=== PATIENT | male | born 1960 | race Caucasian/White ===

== ENCOUNTER 2021-12-21 10:04 | Emergency (ER) | payer OTHER, SELFPAY ==
[2021-12-21 10:20] VITALS: BP 145/86; PULSE 79; RESP 16; TEMP 36.3; O2SAT 97
--- NOTE | 2021-12-21 10:21 | ED.URI ---
HPI - URI/Sore Throat General Chief Complaint: Upper Respiratory Infection Stated Complaint: Sinus Infection Time Seen by Provider: 12/21/21 10:22 Source: patient, family, RN notes reviewed and old records reviewed Mode of arrival: ambulatory Limitations: no limitations History of Present Illness HPI Narrative: 61-year-old male presents to the [facility] with complaint of sinus pain, pressure and nasal drainage for 10 days. Denies fevers. No cough. No chest pain or abdominal pain. Related Data Home Medications Medication Instructions Recorded Confirmed lisinopril 12/21/21 Allergies Allergy/AdvReac Type Severity Reaction Status Date / Time ferrous sulfate Allergy Unknown Unknown Verified 12/21/21 10:31 tetracycline Allergy Unknown Unknown Verified 12/21/21 10:31 hydrochlorothiazide Allergy Unknown Verified 12/21/21 10:31 TETRAMYCIN Allergy Mild Unknown Uncoded 12/21/21 10:31 Review of Systems Review of Systems: All systems reviewed & are unremarkable except as noted in HPI and below Constitutional: Constitutional: Reports no additional constitutional complaints, Denies chills, Denies fever(s) and Denies headache(s) Eyes: Eyes: Reports no additional eye complaints ENT: Reports as per HPI, Denies vertigo, Denies dizziness, Denies headache(s), Reports nasal congestion and Denies sore throat Cardiovascular: Cardiovascular: Reports no additional cardiovascular complaints, Denies chest pain, Denies syncope, Denies rapid heart rate and Denies dyspnea Respiratory: Respiratory: Reports no additional respiratory complaints, Denies cough, Denies dyspnea and Denies wheezing Gastrointestinal: Gastrointestinal: Reports no additional gastrointestinal complaints, Denies abdominal pain, Denies diarrhea, Denies nausea and Denies vomiting Musculoskeletal: Musculoskeletal: Reports no additional musculoskeletal complaints and Denies numbness Integumentary/Breasts: Skin/Breast: Reports system reviewed and no additional complaints, except as docu Neurologic: Reports system reviewed and no additional complaints, except as documented, Denies vertigo, Denies dizziness, Denies syncope, Denies headache(s), Denies focal weakness and Denies numbness Psychiatric: Psychiatric: Reports no additional psychiatric complaints Allergic/Immunologic: Allergic/Immunologic: Reports no additional allergic/immunologic complaints and Denies wheezing PMFSH Past Medical History Medical History (Updated 12/21/21 @ 18:42 by Nargis Chatman) Hypertension Comments At the time of my signature, I reviewed and agree with the nursing past medical, surgical, social, and family history. There is no relevant family history pertinent to the patient complaint. Exam Const: General: cooperative, no acute distress, well developed, alert and ill appearing chronically; not acutely Nutritional Appearance: well nourished Orientation/consciousness: patient oriented x3 Limitations: no limitations HENMT: Head: normal to inspection Ears: external ears normal, TM's normal bilaterally and EAC's normal General nose exam: No nasal discharge present and Abnormal mucous membranes and turbinates present boggy; not erythematous Face and sinus: normal facial exam, no ecchymosis, no erythema and sinus tenderness frontal and maxillary Mouth: Yes Normal oral and palatal mucosa present Throat: posterior oropharynx normal, uvula midline, postnasal drainage and no uvular edema Eyes: Conjunctivae: conjunctivae normal Pupils: Equal, round and reactive pupils present Neck: Neck: normal visual inspection, no lymphadenopathy and no meningeal signs Chest: Chest palpation & inspection: normal inspection of the chest Resp: Effort & Inspection: normal respiratory effort and no use of accessory muscles Auscultation: clear to auscultation bilaterally, no crackles, no rales, no rhonchi and no wheezes Cardio: Rate: regular rate Rhythm: regular rhythm : General: Yes no CVA tenderness Back/
== END 2021-12-21 10:36 | disposition home or self-care (01) ==
PROVIDERS: Emergency Provider Nurse Practitioner
DX: J32.9 Chronic sinusitis, unspecified (principal); I10 Essential (primary) hypertension
CPT/HCPCS: 99213; G0463

== ENCOUNTER 2022-07-26 00:10 | Day surgery (SDC) | payer OTHER, SELFPAY ==
[2022-07-09 14:32] VITALS: BMI 39.6
--- NOTE | 2022-07-23 17:34 | P.HP_ITS ---
History of Present Illness History of Present Illness Consent: Risks, benefits, and alternatives have been discussed and questions answered. Patient agrees to proceed with procedure. Chief complaint: hx of colon ca Narrative: Satya Ashley is a 61 year old male Referred for colon cancer screening. He was found have colon cancer 8 years ago. Review of Systems Review of Systems: All systems reviewed & are unremarkable except as noted in HPI and below PMFSH Past Medical History Medical History Colon cancer Depression Hx of fracture of ankle Hypertension NSTEMI (non-ST elevated myocardial infarction) Family History Family History Father Alcohol abuse Hypertension Arrhythmia Mother Cerebrovascular accident Diabetes mellitus Hypertension Hyperlipidemia Grandparent Diabetes mellitus Cerebrovascular accident Sibling Parkinson's disease Asthma Social History Social History Smoking status: Never smoker Second hand tobacco smoke exposure: Yes Alcohol intake: current Alcohol use details: one beer per month Substance use: never Substance use type: does not use Living arrangements: with family 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 Gender identity (if verbalized by the patient): Male Spiritual care concerns: No Meds Home Medications and Allergies Home Medications Medication Instructions Recorded Confirmed Type amlodipine 10 mg tablet (Norvasc) 10 mg PO DAILY #90 tabs 03/15/22 07/26/22 Rx lisinopril 20 mg tablet 20 mg PO DAILY #90 tabs 03/15/22 07/26/22 Rx naproxen sodium 220 mg capsule 220 mg PO BID PRN Pain 03/15/22 07/26/22 History omeprazole 20 mg capsule,delayed 20 mg PO DAILY PRN (Drug) Ingestion 03/15/22 07/26/22 History release rosuvastatin 20 mg tablet (Crestor) 20 mg PO DAILY #90 tabs 03/29/22 07/26/22 Rx Allergies Allergy/AdvReac Type Severity Reaction Status Date / Time ferrous sulfate Allergy Unknown Unknown Verified 07/26/22 09:05 tetracycline Allergy Unknown Unknown Verified 07/26/22 09:05 hydrochlorothiazide Allergy Unknown Verified 07/26/22 09:05 TETRAMYCIN Allergy Mild Unknown Uncoded 07/26/22 09:05 Exam Resp: Auscultation: clear to auscultation bilaterally Cardio: Rate: regular rate Rhythm: regular rhythm GI: GI Palp: Yes Soft to palpation and No Tenderness to palpation present (GI) Assessment and Plan Assessment and plan (1) Colon cancer screening: Code(s): Z12.11 - Encounter for screening for malignant neoplasm of colon Status: Acute Assessment and Plan: Colonoscopy with possible biopsy or polypectomy or cautery or injection of substances.
[2022-07-26 09:07] VITALS: BP 143/85; PULSE 53; RESP 20; TEMP 36.3; O2SAT 99
--- NOTE | 2022-07-26 09:09 | WPDANESEPPF ---
Anes - Initial Pre Proc Eval Procedure: Operation Date: 07/26/22 10:00 Proposed Procedures p Screening Colonoscopy - Huey Piedra MD Date/Time: 07/26/22 09:09 Surgeon: Huey Piedra MD Pre Op Diagnosis: hx of colon ca Patient Data Age: 61 Gender: M Height: 1.8 m Weight: 129 kg Allergies Allergy/AdvReac Type Severity Reaction Status Date / Time ferrous sulfate Allergy Unknown Unknown Verified 07/26/22 09:05 tetracycline Allergy Unknown Unknown Verified 07/26/22 09:05 hydrochlorothiazide Allergy Unknown Verified 07/26/22 09:05 TETRAMYCIN Allergy Mild Unknown Uncoded 07/26/22 09:05 Home Medications Medication Instructions Recorded Confirmed Type amlodipine 10 mg tablet (Norvasc) 10 mg PO DAILY #90 tabs 03/15/22 07/09/22 Rx lisinopril 20 mg tablet 20 mg PO DAILY #90 tabs 03/15/22 07/09/22 Rx naproxen sodium 220 mg capsule 220 mg PO BID PRN Pain 03/15/22 07/09/22 History omeprazole 20 mg capsule,delayed 20 mg PO DAILY PRN (Drug) Ingestion 03/15/22 07/09/22 History release rosuvastatin 20 mg tablet (Crestor) 20 mg PO DAILY #90 tabs 03/29/22 07/09/22 Rx Patient hx anesthesia problems: none Family hx anesthesia problems: none Results Review: All pre-operative results and documents have been reviewed as part of the pre-operative evaluation. [facility] Past Medical History Medical History Colon cancer Depression Hx of fracture of ankle Hypertension NSTEMI (non-ST elevated myocardial infarction) Family History Family History Father Alcohol abuse Hypertension Arrhythmia Mother Cerebrovascular accident Diabetes mellitus Hypertension Hyperlipidemia Grandparent Diabetes mellitus Cerebrovascular accident Sibling Parkinson's disease Asthma Social History Social History Smoking status: Never smoker Second hand tobacco smoke exposure: Yes Alcohol intake: current Alcohol use details: one beer per month Substance use: never Substance use type: does not use Living arrangements: with family 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 Informed Consent: The patient's anesthetic plan and its attendant risks and benefits were discussed with the patient/family/POA. Questions were solicited and answers provided to the satisfaction of the patient/family/POA.
[2022-07-26] MEDS: LACTATED RINGERS 1,000 ML 150 ML IV CONT (09:20)
[2022-07-26 09:59] VITALS: BP 89/60; PULSE 55; RESP 18; O2SAT 96
[2022-07-26 10:09] VITALS: BP 130/83; PULSE 55; RESP 21; O2SAT 94
[2022-07-26 10:19] VITALS: BP 133/85; PULSE 50; RESP 22; O2SAT 96
--- NOTE | 2022-07-26 11:57 | SUR.PHASEII ---
Pt discharge delayed pt waiting daughter to arrive after her Dr. Patel
== END 2022-07-26 11:50 | disposition home or self-care (01) ==
PROVIDERS: PCP Family Medicine; Visit Provider Internal Medicine Gastroenterology
PROC: 0DJD8ZZ Inspection of Lower Intestinal Tract, Via Natural or Artificial Opening Endoscopic (ICD-10-PCS; CPT 45378; principal; 2022-07-26 10:00)
DX: Z12.11 Encounter for screening for malignant neoplasm of colon (principal); D12.5 Benign neoplasm of sigmoid colon; Z98.0 Intestinal bypass and anastomosis status; K57.30 Diverticulosis of large intestine without perforation or abscess without bleeding; I10 Essential (primary) hypertension; I25.2 Old myocardial infarction; F32.A Depression, unspecified; E66.01 Morbid (severe) obesity due to excess calories; Z68.41 Body mass index [BMI] 40.0-44.9, adult
CPT/HCPCS: 45385; 88305; J2704; J7120

== ENCOUNTER 2022-10-22 10:01 | Outpatient (CLI) | payer OTHER, SELFPAY ==
--- NOTE | 2022-10-25 14:04 | WPDHOLTEREM ---
Holter/Event Monitor Holter/Event Monitor Date of procedure: 10/25/22 Holter/Event Procedure: 48 Hr Holter Monitor Diagnosis: Unspecified arrhythmia Indications: Arrhythmia Image/Tracing Quality: Favorable Finding: The basic rhythm is sinus with normal FL interval. QRS duration is 0.12 seconds QT interval is normal. The heart rate varies from a minimum of 40 to a maximum of 125 with a mean rate of 68. There were no significant pauses or abnormalities of AV conduction. The longest RR interval recorded was 1.6 seconds. Supraventricular ectopic activity was infrequent consisting of PACs occurring at a rate of less than 1 complex per hour. There was 1 3 beat atrial run identified. There were no risk Systane runs of SVT in the were no examples of atrial fibrillation. Ventricular ectopic activity was infrequent and consisted of single unifocal PVCs. Occurring in an average rate of just under 12 beats per hour. There were no ventricular couplets or runs. The diary returned with this monitor had no entries presumably there were no symptoms Conclusion: 1. 48 hour Holter monitor showing sinus rhythm with a intraventricular conduction delay and normal heart rate variability 2. Low-frequency atrial and ventricular ectopics as described above 3. No symptoms during this exam Denny Hamilton MD [facility]
== END 2022-10-22 10:02 | disposition home or self-care (01) ==
LOC: ANHCARD 10:03
PROVIDERS: PCP Family Medicine; Visit Provider Physician Assistant Medical
DX: I49.9 Cardiac arrhythmia, unspecified (principal)
CPT/HCPCS: 93225; 93226

== ENCOUNTER 2025-09-09 00:33 | Day surgery (SDC) | payer OTHER, SELFPAY ==
--- OUTSIDE RECORDS SUMMARY | 2018-03-30 10:45 | XMS_ITS | Continuity of Care Document ---
[facility] Address [address] [place] [address] Phone Care Team Providers Care Circus Supervisor Name Role Phone Wes LUJAN, OTR/L, PANCHOT, Bert Unavailable Ashlee vailable Procedures Procedure Date Orthotic Mgmt and Training Wrist & Thumb Forearm based opponens March Advance Directives Directive Yes / No Effective Date File Name No Information Encounters Encounter Description Practice Location Reason(s) For Visit Diagnoses Date Provider Providers Copied on Encounter [facility], [address], [place], [place], [id number], [place] tel:[phone] [place] Arthrodesis statusPain in left finger(s)Other specified soft tissue disordersStiffne ss of left hand, not elsewhere classifiedOther lack of coordinationSpra in of metacarpophalang eal joint of unsp thumb, init 3-201 8 Wes Noel. [address], [address], [place], [address], [place]. tel:[phone] Referring Provider: Per Schneider, [address], [place], [address]. tel:[phone] Family History Family Member Type Diagnosis Age At Onset No Information Payers Payer name Insurance type Covered constitution party ID Authoriza tion(s) [facility] Adonis EMMANUEL [id number] Social History Type Description Quantity Date Captured Comments Sex Male Smoking Status No Information Chief Complaint And Reason For Visit No Information Reason For Referral Reason For Referral No Information History Of Present Illness Encounter Date Complaint History Of Prese nt Illness No Information Functional Status Date Functional Assessmen t No Information Instructions Date Instruction Additional Infor mation No Information Assessments Type Assessment Date No Information Patient Care Teams Name Effective Dates (start - stop) Status Members No Information
[2025-08-30 11:50] VITALS: BMI 40.4
--- OUTSIDE RECORDS SUMMARY | 2025-09-09 00:36 | XMS_ITS | Clinical Summary ---
Author Organization [facility] Address [address] [place] [address] Care Team Providers Care Public Information Specialist Name Role Phone Unavailable Primary Care Provider Unavailabl e Social History Tobacco Use Types Packs/Day Years Used Date Smoking Tobacco: Never Assessed Sex and Gender Information Value Date Recorded Sex Assigned at Not on file Legal Sex Male 4:39 PM CDT Gender Identity Not on file Sexual Orientation Not on file Last Filed Vital Signs Vital Sign Reading Time Taken Comments Blood Pressure 146/98 10/12/2012 8:22 AM [facility] Pulse 58 10/12/2012 8:22 AM [facility] Temperature - - Respiratory Rate - - Oxygen Saturation - - Inhaled Oxygen Concentration - - Weight 116.1 kg (256 lb) 10/12/2012 8:22 AM [facility] Height 180.3 cm (5' 11) 10/12/2012 8:22 AM [facility] Body Mass Index 35.7 10/12/2012 8:22 AM [facility]KER Plan of Treatment Health Maintenance Due Date Last Done Comments Colorectal Cancer Screening Colonoscopy (10 Years) 1962 Annual Physical 1965 Hepatitis C 1980 DTaP, Tdap and Td Vaccines ( 1 - Tdap) 1981 Pneumococcal Vaccine: 50+ Ye ars (1 of 1 - PCV) 2012 Zoster Vaccines (1 of 2) 2012 COVID-19 Vaccine (1 - 2023-2 5 season) 2025 Influenza Adult (#1) 2025 RSV Immunization or 60+ Years (1 - 1-dose 75+ series) 2037 Meningococcal B Vaccine Aged Out No l onger eligible based on patient's age to complete this topic Meningococcal Vaccine Aged Out No baltazar molly eligible based on patient's age to complete this topic RSV Immunizations Under 20 Months Aged Out No longer eligible based on patient's age to complete this topic
--- OUTSIDE RECORDS SUMMARY | 2025-09-09 00:36 | XMS_ITS | Clinical Summary ---
Author Organization [facility] Address [address] [place] [place] [address] Care Team Providers Care Acid Strength Inspector Name Role Phone Víctor Sauer MD Primary Care Provider [phone] Source Comments [facility],non-owned Affiliates and Associated Physician Practices is amultiple site organization consisting of ambulatory clinics and hospital sitesin [place], [place], [place] and [place]. This disclosure is being madepursuant to the Care Everywhere program and may not contain all information available regarding this patient. Last updated 18.[facility] Allergies Active Allergy Reactions Criticality Noted Date Comments Ferrous Sulfate Urticaria Medium 04/15/2017 Hydrochlorothiazide Other High 11/30/2016 Dehydration, NATHANIEL Tetracycline Urticaria Medium 09/21/2012 Medications * This document contains information received from the source organization and may not represent a complete record from that organization. * Be aware that medications may not be up to date on this document. Alwaysverify current medications with the patient. lisinopril (PRINIVIL; ZESTRIL) 20 MG tablet TAKE ONE TABLET BY MOUTH ONCE DAILY 90 tablet 1 05/17/2018 Active metoprolol succinate XL 24hr (Toprol XL) 50 MG tablet Take 1 (one) tablet by mouth at bedtime Active rosuvastatin (Crestor) 20 MG tablet Take 1 (one) tablet by mouth once daily Active acetaminophen CR (Tylenol Arthritis Pain) 650 MG tablet Take 1 (one) tablet by mouth every 8 hours as needed for Pain Active pantoprazole EC (Protonix) 40 MG tablet Take 1 (one) tablet by mouth once daily 30 tablet 01/18/2025 Active Active Problems Problem Noted Date Diagnosed Date Gastrointestinal hemorrhage, unspecified gastrointestinal hemorrhage type 01/17/2025 SHARRI (obstructive sleep apnea) 02/13/2018 Iron deficiency anemia 01/09/2018 Prediabetes 01/06/2017 Carcinoma of sigmoid colon 05/07/2016 Depression 05/07/2016 Hyperlipidemia 05/07/2016 Obesity 05/07/2016 Essential hypertension 03/02/2016 Osteoarthrosis 03/02/2016 Overview (03/14/2018): Overview: Multiple joints. Worst in left ankle s/p fracture with 3 screws placed. Gastroesophageal reflux disease without esophagi tis 01/27/2015 Overview (03/14/2018): Overview: H/o upper GI bleed, vomiting coffee ground emesis in 2012. Was on chronic NSAIDS at that time. Now doing ok with omeprazole. CAD (coronary artery disease) 04/11/2013 Overview (03/14/2018): Overview: Mild, non-obstructive by [facility] 02/2013 Immunizations Immunization Administration Dates Next Due INFLUENZA VACCINE, TRIV. (AF LURIA, FLUZONE TRIVALENT; 6MO+) (IIV3) 10/19/2017,08/28/2016,09/21/2012 INFLUENZA VACCINE 08/28/2018 Influenza Intradermal 09/12/2013 PNEUMOCOCCAL PPSV23 09/21/2012 Family History Medical History Relation Name Comments Other - Cardiac Father [place] CVA Mother Relation Name Status Comments Father Mother Social History Tobacco Use Types Packs/Day Years Used Date Smoking Tobacco: Never Smokeless Tobacco: Never Tobacco Cessation:Counseling Given: Not Answered AUDIT-C Answer Date Recorded Q1: How often do you have a drink containing alc ohol? Monthly or less 01/17/2025 Q2: How many drinks containi ng alcohol do you have on a typical day when you are drinking? 1 or 2 01/17/2025 Q3: How often do you have si x or more drinks on one occasion? Never 01/17/2025 Overall Financial Resource Strain (CARDIA) Answe r Date Recorded How hard is it for you to pa y for the very basics like food, housing, medical care, and heating? Not hard at all 01/17/2025 [facility] [place] [facility] - Occupational Stress Questionnaire Answer Date Recorded Do you feel stress - tense, restless, nervous, or anxious, or unable to sleep at night because your mind is troubled all the time - these days? Not at all 01/17/2025 Hunger Vital Sign Answer Date Recorded Within the past 12 months, y ou worried that your food would run out before you got the money to buy more. Never true 01/17/20 25 Within the past 12 months, t he food you bought just didn't last and you didn't have money to get more. Never true 01/17/2025 PRAPARE - Transportation Answer Date Re corded In the past 12 months, has l ack of transportation kept you from medical appointments or from getting medications? No 12/30 In the past 12 months, has l ack of transportation kept you from meetings, work, or from getting things needed for daily living? No 01/17/2025 Housing Stability Vital Sign Answer Gopal e Recorded In the last 12 months, was t here a time when you were not able to pay the mortgage or rent on time? No 01/17/2025 In the past 12 months, how m any times have you moved where you were living? 1 01/17/2025 At any time in the past 12 m [facility], were you homeless or living in a half-way (including now)? No 01/17/2025 Sex and Gender Information Value Date Recorded Sex Assigned at Not on file Legal Sex Male 6:28 AM [employer] Gender Identity Not on file Sexual Orientation Not on file Last Filed Vital Signs Vital Sign Reading Time Taken Comments Blood Pressure 128/65 01/18/2025 3:27 PM [employer] Pulse 48 01/18/2025 3:27 PM [employer] Temperature 36.6 C (97.8 F) 01/18/2025 3:27 PM [employer] MA[employer] Respiratory Rate 16 01/18/2025 3:27 PM [employer] MA[employer] Oxygen Saturation 96% 01/18/2025 3:27 PM [employer] MA[employer] Inhaled Oxygen Concentration - - Weight 126.3 kg (278 lb 6.4 oz) 01/17/2025 6:11 PM [employer] MA[employer] Height 185.4 cm (6' 1) 01/17/2025 6:11 PM [employer] Body Mass Index 36.73 01/17/2025 6:11 PM [employer] MANA[employer] Plan of Treatment Health Maintenance Due Date Last Done Comments COLOGUARD (AGES 45-75) - COLON CA SCREENING 1962 COLONOSCOPY - COLON CA SCREENING 1962 CT COLONOGRAPHY - COLON CA SCREENING 1962 FIT - COLON CA SCREENING 1962 FLEX SIG - COLON CA SCREENING 1962 HIV SCREENING 1977 HEPATITIS C SCREENING 09/25/1980 DTAP/TDAP/TD VACCINES (1 - Tdap) 1981 ZOSTER VACCINE (1 of 2) 2012 PNEUMOCOCCAL VACCINE 50+ (2 of 2 - PCV) 09/21/2013 09/21/2012 COLON MONITORING 03/16/2022 03/16/2017 (Don e Outside Per Report) Colorectal Cancer Screening 03/16/2022 DEPRESSION SCREENING 11/28/2024 COVID-19 VACCINE ( season) 2025 02/17/2022, 09/14/2021, 08/24/2021 INFLUENZA VACCINE (#1) 2025 4, 08/25/2023, 09/15/2022, Additional history exists SCREENING FOR DIABETES 01/17/2028 5, 03/14/2018, 08/04/2017, Additional history exists Respiratory Syncytial Virus (RSV) Vaccine Pt: or over 60 yrs (1 - 1-dose 75+ series) 2037 HEPATITIS B VACCINE Aged Out No longe r eligible based on patient's age to complete this topic HIB VACCINE Aged Out No longer eligi ble based on patient's age to complete this topic HPV VACCINE Aged Out No longer eligi ble based on patient's age to complete this topic MENINGOCOCCAL (Group B) VACCINE SHARED DECISION-MAKING Aged Out No longer eligible based on patient's age to complete this topic MENINGOCOCCAL GROUPS A/C/Y/W VACCINE Aged Out No longer eligible based on patient's age to complete this topic Procedures Procedure Name Priority Date/Time Associated Diagnosis Comments COMPREHENSIVE METABOLIC PANEL STAT 01/17/2025 9:36 PM [employer] MA[employer] from Last 3 Months or Most Recently Relevant to Health Maintenance Results * (ABNORMAL) COMPREHENSIVE METABOLIC PANEL (01/17/2025 9:36 PM [facility] Glucose 96 70 - 99 mg/dL 01/17/2025 10:26 PM [facility] Sodium 136 136 - 145 mmol/L 01/17/2025 10:26 PM [facility] Potassium 3.5 3.5 - 5.1 mmol/L 01/17/2025 10:26 PM [facility] Chloride 109(H) 98 - 107 mmol/L 01/17/2025 10:26 PM [facility] CO2 18(L) 22 - 29 mmol/L 01/17/2025 10:26 PM [facility] Calcium 9.1 8.4 - 10.4 mg/dL 01/17/2025 10:26 PM [facility] Anion Gap 9 6 - 16 mmol/L 01/17/2025 10:26 PM [facility] BUN 43(H) 7 - 26 mg/dL 01/17/2025 10:26 PM [facility] Creatinine 1.87(H) 0.72 - 1.25 mg/dL 01/17/2025 10:26 PM [facility] Alkaline Phosphatase 40 40 - 150 U/L 01/17/2025 10:26 PM [facility] ALT 22 0 - 55 U/L 01/17/2025 10:26 PM [facility] AST 23 5 - 34 U/L 01/17/2025 10:26 PM [facility] Protein Total 6.7 6.4 - 8.3 gm/dL 01/17/2025 10:26 PM [facility] Albumin 3.5 3.4 - 5.0 gm/dL 01/17/2025 10:26 PM [facility] Bilirubin Total 0.8 0.2 - 1.2 mg/dL 01/17/2025 10:26 PM [facility] eGFR by CKD-EPI 40(L) >=90 mL/min/1.7 3 m2 01/17/2025 10:26 PM [facility] Blood BLOOD SPECIMEN / Unknown Venipuncture / Unknown 01/17/2025 9:36 PM [facility] 01/17/2025 10:03 PM [employer] MANA[employer] us Janice Arroyo MD LAB - CHEMISTRY ORDERABLES Fi nal Result [facility] [address] [place] [address] from Last 3 Months or Most Recently Relevant to Health Maintenance Insurance CIG Advance Directives * Full Code (Latest Code Status on File) Date Activated Date Inactivated Comments 01/17/2025 7:49 PM 01/18/2025 6:57 PM Care Teams Acid Strength Inspector Relationship Specialty Start Date End Date Víctor Sauer MD [address] [place] [address] PCP - General Family Medicine 01/17/25
--- OUTSIDE RECORDS SUMMARY | 2025-09-09 00:36 | XMS_ITS | Data Portability ---
Author Organization [place] - [address], Main Office Address [address] [place] [address] Care Team Providers Care Court Worker Name Role Phone NOMI LARA Primary Care Provider NOMI LARA Referring Provider Assessment Encounter Date Assessment Date Assessment LastModified by Organization Details LastModified Time 11/01/2023 11/01/2023 The patient has lateral epicondylitis of the left elbow. We talked about treatment options today he wanted proceed with oral prednisone and a shot of cortisone therefore under sterile conditions I injected the patient's left elbow ECRB attachment at the lateral epicondyle at the point of maximal tenderness with 2 cc 0.5% bupivacaine and 10 mg of Kenalog. Patient tolerated the procedure well. I will see him back as needed he can give it 6 weeks if his symptoms continue he will call we will get him back in if necessary. He voiced understanding agrees above plan we did talk about stretching massage and ice particularly at the end of a busy day he voiced understanding agrees above plan. [email or web address] Not available 11/01/2023 10:23:38 Plan of Treatment Reminders Order Date Submit Date Provider Last Modified By Organization Details Last Modified Time Details Appointments None recorded. Lab None recorded. Referral None recorded. Procedures injection/a spiration joint/bursa (PROC) 2022 023 [email or web address] In-Office Order, Internal Use Only DO Not Attach Compendium DO Not Attach Compendium, Do Not Delete/merge, 15900 10:05:08 Surgeries None recorded. Imaging XR, elbow 2022 023 [email or web address] s_g [facility] [address] [facility], [address], [place], [address], 3 11:07:02 Medication Orders bupivacaine HCl 0.5 % (5 mg/mL) injection solution 2022 023 [email or web address] [facility] #[id number], [address] , [place], [place], [id number], 3 11:07:02 Kenalog 10 mg/mL suspension for injection 2022 023 [email or web address] [facility] #[id number], [address] , [place], [place], [id number], 3 11:07:02 prednisone 10 mg tablets in a dose pack 2022 023 [email or web address] [facility] #[id number], [address] , [place], [place], [phone], 3 11:07:02 Patient TargetsNo targets recorded. Patient InstructionsNo instructions recorded. Reason for Referral None Reported. Results Created Date Observation Date Name Description Value Unit Range Abnormal Flag Note LastModifiedBy Organization Detail LastModifiedTime 03/17/20 21 03/17/2021 XR, elbow No observ ation record ed. [id number] [facility] [address] [facility], [place], [address], 01/26/2023 12:50:01 04/22/20 21 MRI elbow lt wo [facility] [address] [facility], [place] [address] Patien t Name: CECE PORTER Access ion #: [id number] Sex: M : 1959 Locati on: IND Attend ing Physic rao: Orderi ng Physic rao: KELVIN HO Exam Date: 7:38 AM Exam Name: MRI ELBOW LT WO Admitt ing Diagno sis(es ): RADIOL OGY REPORT - FINAL EXAM: MRI ELBOW LT WO HISTOR Y: pain COMPAR PRAFUL: None. TECHNI QUE: Multip lanar multis equenc e noncon trast MR images of the right elbow were perfor med. FINDIN GS: Osseou s: No eviden ce of a fractu re malali gnment or destru ctive proces s. Subcho ndral reacti ve marrow signal intens ity noted along the capite llum. No eviden ce of a fractu re disloc ation or destru ctive proces s. Joint space: There is a small joint effusi on. Page 1 of 2 [facility] Name: CECE PORTER Access ion #: [id number] Sex: M : 1959 Exam Date: 7:38 AM Exam Name: MRI ELBOW LT WO Admitt ing Diagno sis(es ): Ligame nts: There is edema and eviden ce of a high-g rade injury of the radial collat eral ligame nt. The tricep s tendon is unrema rkable . Tendon s: There is diffus e hyperi ntense signal at the common extens or tendon insert ion site. The common flexor tendon insert ion site appear s unrema rkable . Extra- articu lar tissue s: Unrema rkable . IMPRES SHIKHA: 1. Eviden ce of a high-g rade radial collat eral ligame nt injury . 2. Eviden ce of tendin osis signal intens ity and a partia l modera te to high-g rade injury of the common extens or tendon at the insert ion site. Create d and electr onical ly signed by: Jono clinton MD Signed Date: 2:31 PM (CT) Dictat ed by: Jono clinton MD DD: 2:31 PM (CT) DT: 2:31 PM (CT) Page 2 of 2 [facility].[id number] [facility] (Imaging) [address], [place], [address], 01/26/2023 12:50:01 04/24/20 21 04/22/2021 MRI, elbow , w/o contr ast No observ ation record ed. [id number] [facility] [address], [place], [address], 01/26/2023 12:50:01 11/01/20 XR, elbow No observ ation record ed. [email or web address] [facility] [address], [address], [place], [address], 11/01/2023 10:23:02 Result Notes None recorded. Problems Name Problem SNOMED Code Status Onset Date Resolution Date Notes Provider Name and Address Organization Details Recorded Time Sprain of ankle 67365270 Active Not Available [facility] 12:47:31 Pain in limb 60064436 Active Not Available [facility] 12:47:31 Pain of left elbow joint 3489918822019 9104 Active 2022 LUIS MIGUEL Curtis [place] [facility] 10:03:18 Left lateral elbow tendinopat hy 1025444339846 00 Active 2022 ELVIS Jimenez [address] [facility], [address], [place], [address] , [place] [facility] [employer] 10:23:12 Problem Notes None recorded. Procedures Surgical History Date Name Laterality Status Provider Name and Address Organization Details Recorded Time Testicular completed Sally Collins CNA [place] [facility] [employer] 11/01/2023 10:02:09 examination of thumb completed Not Available [facility] 01/26/2023 12:46:19 Ankle Surgery completed Not Available [facility] 01/26/2023 12:46:19 Tonsillectomy completed Sally Collins CNA [place] [facility] 11/01/2023 10:00:17 Imaging Results None recorded. Procedure Notes None recorded. Medical Equipment None Reported. Allergies Allergen ID Allergen Name Allergen Category Reaction Reaction Severity Criticality Documentation Date Start Date Code Code System Note Provider Name and Address Organization Details Recorded Time 35018 tetracycl ine medicatio n hives Not available Not available 01/26/2023 45512 RxNorm Not Available [facility] 3 12:49:57 59181 hydrochlo rothiazid e medicatio n Not available Not available Not available 01/26/2023 5487 RxNorm renal failu re Not Available [facility] 3 12:49:57 89968 ferrous sulfate medicatio n Not available Not available Not available 01/26/2023 28698 RxNorm Not Available [facility] 3 12:49:57 Medications Name Sig Start Date Stop Date Status Note LastModified by Organization Details LastModified Time prednisone 10 mg tablet TAKE 1 TABLET BY MOUTH 3 TIMES DAILY FOR 3 DAYS THEN TAKE 1 TABLET TWICE DAILY FOR 2 DAYS THEN TAKE 1 TABLET FOR 1 DAY. active Not Available Not Available No t Available venlafaxine 75 mg tablet Take 1 tablet twice a day by oral route. 03/17 completed Not Available Not Available Not Available metoprolol succinate ER 50 mg tablet,exte nded release 24 hr active Not Available Not Available Not Available lisinopril 20 mg tablet TAKE 1 TABLET BY MOUTH DAILY active Not Available Not Available No t Available bupivacaine HCl 0.5 % (5 mg/mL) injection solution Take 10 mg by injection route. 2022 active Not Available Not Available Not Avai lable tramadol 50 mg tablet 11/05 completed Not Available Not Available Not Available prednisone 10 mg tablets in a dose pack Take 1 tab by mouth, 3 times a day for 3 daysTake 1 tab by mouth 2 times a day for 2 daysTake 1 tab by mouth once a day for 1 day 2022 active Not Available Not Available Not Avai lable prednisolon e acetate 1 % eye drops,suspe nsion 11/05 completed Not Available Not Available Not Available Nitrostat 0.4 mg sublingual tablet 11/05 completed Not Available Not Available Not Available Kenalog 10 mg/mL suspension for injection Take 10 mg by injection route. 2022 active ND: 0003- 0494- 20 Not Available Not Available Not Available amlodipine 10 mg tablet TAKE 1 TABLET BY MOUTH DAILY 11/01 completed Not Available Not Available Not Available simvastatin 20 mg tablet 11/05 completed Not Available Not Available Not Available omeprazole 20 mg capsule,del ayed release 11/06 completed Not Available Not Available Not Available hydrochloro thiazide 25 mg tablet 11/05 completed Not Available Not Available Not Available metoprolol succinate ER 25 mg tablet,exte nded release 24 hr 11/01 completed Not Available Not Available Not Available lisinopril 40 mg tablet 11/05 completed Not Available Not Available Not Available diazepam 5 mg tablet 11/05 completed Not Available Not Available Not Available rosuvastati n 20 mg tablet active Not Available Not Available Not Available amlodipine 03/17 completed Not Available Not Available Not Available lidocaine (PF) 10 mg/mL (1 %) injection solution In office injection administe red by the provider 11/01 completed [facility]: 0409- 4276- 17 Not Available Not Available Not Available GaviLyte-G 236 gram-22.74 gram-6.74 gram-5.86 gram oral solution 11/05 completed Not Available Not Available Not Available gatifloxaci n 0.5 % eye drops 11/05 completed Not Available Not Available Not Available Afluria 9447-3680 (PF) 45 mcg (15 mcg x 3)/0.5 mL IM syringe 11/05 completed Not Available Not Available Not Available Fluzone Quad (PF) 60 mcg (15 mcg x 4)/0.5 mL IM syringe active Not Available Not Available N ot Available Vitals Date Recorded Body mass index (BMI) Body height Pain severity - 0-10 verbal numeric rating [Score] - Reported Body weight Provider Name and Address Organization Details Last Updated DateTime 03/17/2021 39.7 kg/m2 180.34 cm 6 035468.83 g Not Available [facility] 01/26/2023 12:46:48 Date Recorded Body mass index (BMI) Body height Body weight Provider Name and Address Organization Details Last Updated DateTime 04/14/2021 37.7 kg/m2 180.34 cm 083381.94 g Not Available [facility] 01/26/2023 12:46:48 Date Recorded Body mass index (BMI) Body height Body weight Provider Name and Address Organization Details Last Updated DateTime 06/09/2021 37.7 kg/m2 180.34 cm 684431.94 g Not Available [facility] 01/26/2023 12:46:48 Date Recorded Body height Body mass index (BMI) Body weight Provider Name and Address Organization Details Last Updated DateTime 11/01/2023 177.8 cm 41 kg/m2 452912.26 g Sally Collins CNA [facility] [employer] [facility] 11/01/2023 10:08:34 Social History Question Answer Notes LastModified by OrganizMtoV ion Details LastModified Time Tobacco Smoking Status Never Smoker Not Available [facility] 01/26/2023 12:46:11 What Was The Date Of Your Most Recent Tobacco Screening? 03/17/2021 [id number] Information not available 01/26/2023 Sex: Unknown Functional Status Question Answer Note LastModified by Organization D etails LastModified Time What is your level of alcohol consumption? None [email or web address] Information not available 11/01/2023 Mental Status None recorded. Family History Relationship Description Onset Age of this Age Resolved Age Notes LastModified by Organization Details LastModified Time Mother Family history of stroke [id number] Not available 01/26/2023 12:46:19 Mother Heart disease [id number] Not available 01/26/2023 12:46:19 Mother Diabetes mellitus [id number] Not available 01/26/2023 12:46:19 Father Heart disease [id number] Not available 01/26/2023 12:46:19 Brother Asthma [id number] Not available 01/26/2023 12:46:19 Father Hypertensive disorder [email or web address] Not available 2022 09:59:21 Mother Hypertensive disorder [email or web address] Not available 2022 09:59:21 Paternal Grandfather Family history of malignant neoplasm [email or web address] Not available 2022 09:59:36 Medical History Condition Response ARTHRITIS Y USE OF NSAIDS Y HYPERTENSION Y CANCER: SPECIFY Y Past Encounters Encounter ID Performer Location Encounter Start Date Encounter Closed Date Diagnosis/Indication Diagnosis SNOMED-CT Code Diagnosis ICD10 Code Diagnosis IMO Codes Diagnosis Note [id number] Kelvin San [facility] [address] [place] [address] 03/17/2021 00:00:00 03/17/2021 09:53:47 [id number] Kelvin San MD [facility] [address] [address] 04/14/2021 00:00:00 04/14/2021 09:53:47 [id number] Kelvin San MD [facility] [address] [address] 06/09/2021 00:00:00 06/09/2021 11:01:34 [id number] ELVIS Jimenez [facility] [address] [address] 11/01/2023 09:36:14 11/01/2023 10:29:52 Pain of left elbow joint 2794453730 1464986 M25.522 Left later al elbow tendinopathy 0713705727 03540 M77.12 Health Concerns Section Related Observation LastModified by Organization Detai ls LastModified Time None Recorded Concern Status LastModified by Organization Details LastModified Time None Recorded Advance Directives Directive None Recorded Payers Insurance Date Sequence Insurance Name Policy Number Policy Aparicio Covered Member ID Aparicio Member ID Guarantor Name 11/01/2023 1 [employer] - [facility] ([facility] [id number] Satya Jamil Bringer [id number] Satya Jamil Bringer 11/07/2023 1 [facility]) Satya Jamil Bringer [id number] Satya Jamil Bringer Notes Date Note Type Note Provider Name and Address Organization Details Recorded Time 11/01/2023 text/html patient returns with left elbow pain. He was seen for this 2-1/2 years ago had a similar issue a shot of cortisone gave him good relief. He states for the last month or so he started to have new pain once again. 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 He states he has aching pain mostly over the lateral epicondylar region and through the ECRB attachment region. A lot of his pain comes with heavy lifting or repetitive motion or trying to fully straighten his elbow. He has had no specific trauma or injury to the elbow x-rays today did not reveal any significant osteoarthritis. He has no effusion or swelling denies any numbness or tingling or weakness other than just a lot of pain if he tries to do anything significant with the elbow. Comes in today for initial evaluation treatment of what sounds like lateral epicondylitis of the left elbow. He has failed conservative measures on his own at home he states the pain is about a 6 on a scale of 1-10 he has tried activity modification and [id number] anti-inflammatories without significant relief.Past medical history sheet was reviewed and signed on the intake sheet today's date drug allergies current medications family social history previous surgical history 10 point review of systems was reviewed and discussed in detail today with the patient. ELVIS Jimenez [address] [facility] [facility] [address], [place], [address], [place] [facility] 11/01/2023 10:23:56
--- NOTE | 2025-09-09 07:14 | WPDANESEPPF ---
Anes - Initial Pre Proc Eval Procedure: Operation Date: 09/09/25 12:30 Proposed Procedures p Screening Colonoscopy - Eladio Cole MD Date/Time: 09/09/25 07:14 Surgeon: Eladio Cole MD Pre Op Diagnosis: Family history of malignant neoplasm of digestive Patient Data Age: 64 Gender: M Height: 1.8 m Weight: 131.6 kg Allergies Allergy/AdvReac Type Severity Reaction Status Date / Time ferrous sulfate Allergy Unknown Unknown Verified 09/09/25 11:00 tetracycline Allergy Unknown Unknown Verified 09/09/25 11:00 hydrochlorothiazide Allergy Unknown Verified 09/09/25 11:00 TETRAMYCIN Allergy Mild Unknown Uncoded 09/29/22 10:34 Home Medications ?Medication ?Instructions ?Recorded ?Confirmed ?Type naproxen sodium 220 mg capsule 220 mg PO BID PRN Pain 03/15/22 08/30/25 History lisinopril 20 mg tablet 20 mg PO DAILY #90 tabs 09/15/22 09/09/25 Rx rosuvastatin 20 mg tablet (Crestor) 20 mg PO DAILY #90 tabs 10/07/22 09/09/25 Rx metoprolol succinate 100 mg 100 mg PO DAILY 08/30/25 09/09/25 History tablet,extended release 24 hr pantoprazole 40 mg tablet,delayed 40 mg PO DAILY 08/30/25 09/09/25 History release Patient hx anesthesia problems: none Family hx anesthesia problems: none Results Review: All pre-operative results and documents have been reviewed as part of the pre-operative evaluation. [facility] Past Medical History Medical History (Updated 09/06/25 @ 15:52 by Willy Mendez DO) GERD (gastroesophageal reflux disease) Sleep apnea BMI greater than 40 NSTEMI (non-ST elevated myocardial infarction) Colon cancer Hx of fracture of ankle Depression Hypertension Family History Family History Father Alcohol abuse Hypertension Arrhythmia Mother Cerebrovascular accident Diabetes mellitus Hypertension Hyperlipidemia Grandparent Diabetes mellitus Cerebrovascular accident Sibling Parkinson's disease Asthma Social History Social History Smoking status: Never smoker Second hand tobacco smoke exposure: Yes Substance use: never Substance use type: does not use Living arrangements: with family Occupation/Education: occupation 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 Informed Consent: The patient's anesthetic plan and its attendant risks and benefits were discussed with the patient/family/POA. Questions were solicited and answers provided to the satisfaction of the patient/family/POA.
[2025-09-09 11:01] VITALS: BP 174/110; PULSE 50; RESP 18; TEMP 37.1; O2SAT 97
[2025-09-09] MEDS: LACTATED RINGERS 1,000 ML 150 ML IV CONT (11:17)
--- NOTE | 2025-09-09 12:50 | SUR.PREOP ---
pt updated on delay in cases, no needs verbalized at this time.
--- NOTE | 2025-09-09 13:06 | P.HP_ITS ---
H&P: HPI History of Present Illness Date/Time: 09/09/25 13:06 Chief Complaint: History of colon cancer Narrative: This patient had a sigmoid cancer resected in 2013. His last colonoscopy was 3 years ago, finding 1 small polyp. He is here for his surveillance colonoscopy. Review of Systems Review of Systems: All systems reviewed & are unremarkable except as noted in HPI and below PMFSH Past Medical History Medical History (Updated 09/06/25 @ 15:52 by Willy Mendez DO) GERD (gastroesophageal reflux disease) Sleep apnea BMI greater than 40 NSTEMI (non-ST elevated myocardial infarction) Colon cancer Hx of fracture of ankle Depression Hypertension Family History Family History Father Alcohol abuse Hypertension Arrhythmia Mother Cerebrovascular accident Diabetes mellitus Hypertension Hyperlipidemia Grandparent Diabetes mellitus Cerebrovascular accident Sibling Parkinson's disease Asthma Social History Social History Smoking status: Never smoker Second hand tobacco smoke exposure: Yes Substance use: never Substance use type: does not use Living arrangements: with family Occupation/Education: occupation 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 Gender identity (if verbalized by the patient): Male Meds Home Medications and Allergies Home Medications ?Medication ?Instructions ?Recorded ?Confirmed ?Type naproxen sodium 220 mg capsule 220 mg PO BID PRN Pain 03/15/22 08/30/25 History lisinopril 20 mg tablet 20 mg PO DAILY #90 tabs 08/2809/09/25 Rx rosuvastatin 20 mg tablet (Crestor) 20 mg PO DAILY #90 tabs 10/07/22 09/09/25 Rx metoprolol succinate 100 mg 100 mg PO DAILY 08/30/25 1 History tablet,extended release 24 hr pantoprazole 40 mg tablet,delayed 40 mg PO DAILY 08/3009/09/25 History release Allergies Allergy/AdvReac Type Severity Reaction Status Date / Time ferrous sulfate Allergy Unknown Unknown Verified 09/09/25 11:00 tetracycline Allergy Unknown Unknown Verified 09/09/25 11:00 hydrochlorothiazide Allergy Unknown Verified 09/09/25 11:00 TETRAMYCIN Allergy Mild Unknown Uncoded 09/29/22 10:34 Vital Signs Vital Signs - 24 hr 09/09/25 11:01 Temperature 98.7 F Pulse Rate 50 L Respiratory Rate 18 Blood Pressure 174/110 H Pulse Oximetry 97 Oxygen Delivery Room Air Exam Const: General: cooperative and healthy appearing Resp: Effort & Inspection: normal respiratory effort and able to speak in complete sentences Auscultation: clear to auscultation bilaterally Cardio: Rate: regular rate Rhythm: regular rhythm GI: Inspection: normal to inspection GI Palp: No No hepatosplenomegaly present Auscultation: normal bowel sounds Rectal Exam: deferred Skin: General skin exam: normal color Psych: Appearance: grossly normal Mental Status: mental status grossly normal Assessment and Plan Assessment and plan (1) Hx of malignant neoplasm of colon: Code(s): Z85.038 - Personal history of other malignant neoplasm of large intestine Status: Acute Assessment and Plan: The patient is deemed a good candidate for the procedure. Consent signed. Will proceed.
[2025-09-09 13:27] VITALS: BP 124/71; PULSE 46; RESP 15; O2SAT 94
[2025-09-09 13:37] VITALS: BP 151/84; PULSE 44; RESP 23; O2SAT 100
[2025-09-09 13:47] VITALS: BP 152/87; PULSE 45; RESP 22; O2SAT 99
== END 2025-09-09 13:57 | disposition home or self-care (01) ==
PROVIDERS: PCP Family Medicine; Referring Provider Internal Medicine Gastroenterology; Visit Provider Internal Medicine Gastroenterology
PROC: 0DJD8ZZ Inspection of Lower Intestinal Tract, Via Natural or Artificial Opening Endoscopic (ICD-10-PCS; CPT 45378; principal; 2025-09-09 12:30)
DX: Z09 Encounter for follow-up examination after completed treatment for conditions other than malignant neoplasm (principal); K57.30 Diverticulosis of large intestine without perforation or abscess without bleeding; I10 Essential (primary) hypertension; K21.9 Gastro-esophageal reflux disease without esophagitis; G47.30 Sleep apnea, unspecified; F32.A Depression, unspecified; E66.01 Morbid (severe) obesity due to excess calories; Z68.41 Body mass index [BMI] 40.0-44.9, adult; Z79.1 Long term (current) use of non-steroidal anti-inflammatories (NSAID); Z98.0 Intestinal bypass and anastomosis status; Z90.49 Acquired absence of other specified parts of digestive tract; Z86.0100 Personal history of colon polyps, unspecified; Z85.038 Personal history of other malignant neoplasm of large intestine
CPT/HCPCS: 45378; J2704; J7120